=== PATIENT | male | born 1945 | race Caucasian/White ===

== ENCOUNTER → 2024-12-05 14:08 | Outpatient (REF) | payer OTHER, SELFPAY | LOC: DHSLP 14:08 | PROVIDERS: ATTENDING PHYSICIAN Internal Medicine Critical Care Medicine; FAMILY PHYSICIAN Family Medicine | DX: G47.33 Obstructive sleep apnea (adult) (pediatric) (principal) | CPT/HCPCS: 95800 ==

== ENCOUNTER → 2025-02-17 07:31 | Outpatient (REF) | payer OTHER, SELFPAY | LOC: MRI 07:31 | PROVIDERS: ATTENDING PHYSICIAN Orthopaedic Surgery; FAMILY PHYSICIAN Family Medicine | DX: M25.551 Pain in right hip (principal); Z96.641 Presence of right artificial hip joint | CPT/HCPCS: 73721 ==

== ENCOUNTER 2025-06-28 19:39 | Inpatient (IN) | payer OTHER, SELFPAY ==
[2025-06-28 12:02] VITALS: BP 92/66
[2025-06-28 12:26] LABS: Hematocrit 41.6 % (39.0-52.0); Hemoglobin 14.5 g/dL (13.0-18.0); Mean Corp Hgb Conc. 34.9 g/dL (33.0-37.0); Mean Corpuscular Volume 88.1 fL (80.0-94.0); Nucleated Red Blood Cells % 0 % (-); Platelet Count 158 10^3/uL (130-400); Red Cell Dist. Width 13.2 % (11.5-14.5)
[2025-06-28 12:35] LABS: INR 1.73; PT 20.5 Sec (11.4-14.6)
[2025-06-28 12:36] LABS: APTT 40.3 Sec (23.4-35.0)
[2025-06-28 12:44] VITALS: BMI 38.9
[2025-06-28 12:45] VITALS: BP 126/58
[2025-06-28 13:00] LABS: Blood Urea Nitrogen 16 mg/dl (9-20); Calcium 8.8 mg/dl (8.4-10.2); Carbon Dioxide 26 mmol/L (22-30); Chloride 109 mmol/L (98-107); Estimated Creatinine Clearance 62 ml/min; Glucose 112 mg/dl (70-99); Sodium 139 mmol/L (135-145); eGFR 56.23
[2025-06-28] MEDS: DILAUDID 0.5 MG IV (14:09)
[2025-06-28 15:00] VITALS: BP 135/69
[2025-06-28 16:44] LABS: Glucose - Point of Care 82 mg/dl (70-99)
--- NOTE | 2025-06-28 16:45 | ED.GENMED ---
History of Present Illness
General
Chief Complaint: Rectal Bleeding
Source: patient
Exam Limitations: none
Time Seen by Provider: 06/28/25 13:33
Nursing documentation reviewed up to this point in time: agreed with
History of Present Illness
History of Present Illness:
Patient is a 79-year-old male with history atrial fibrillation on Xarelto, CHF, CAD, hypertension, hyperlipidemia, insulin-dependent diabetes who presents to the emergency department with rectal bleeding. Patient states that over the past week he
was struggling with some constipation however on Tuesday he was able to have a bowel movement and noticed bright red blood in the toilet bowl. Yesterday he, he states that he did not have a bowel movement. He was able to have another bowel
movement today and again noticed a significant amount of bright red blood in the toilet bowl, he believes more today than on Tuesday.
He also reports pain in the left side of his abdomen radiating around into his left back.
Patient denies any history of GI bleeding. He denies any associated fever, chills, dysuria, hematuria. He denies any chest pain, shortness of breath. He denies any hemoptysis or hematemesis.
Patient is anticoagulated on Xarelto.
Past History
Past History
ED Past Medical History: Arrthythmia, CHF and NIDDM
ED Past Surgical History: Cardiac (Ablation)
Social History
Tobacco: Non-smoker
Alcohol: None
Drug: None
Personal:
Living: with family
Employment: Retired
Family History
Family History: Other (Noncontributory)
Review of Systems
Review of Systems
Allergies reviewed?: Yes
All Other Systems: ROS reviewed and negative except as documented in HPI and ROS
Phy Exam
Physical Exam
Physical Exam:
Vitals: Patient's vital signs are stable by my assessment. Afebrile.
General: Patient is well appearing, no acute distress
Skin: Warm and dry, no rashes or lesions
Head: Normocephalic, atraumatic
Eyes: Sclera nonicteric. EOMs intact. No nystagmus.
Throat: Protecting airway
Neck: Normal ROM, no cervical spine tenderness, no meningismus
Cardiac: Bradycardic, normal rhythm, no murmurs.
Pulm: Normal respiratory effort, no wheezes, rales, rhonchi heard on exam
Abdomen: Reproducible tenderness in left mid abdomen. No rebound tenderness or guarding. No CVA tenderness. No rash or ecchymoses
Rectal: No visualized external hemorrhoids. Soft light brown stool in vault. Guaiac positive
Extremities: No evidence of cyanosis or edema
Neuro: AAOx3. Grossly intact.
Psychiatric: Normal affect.
Course
Orders/Labs/Results
Orders:
Orders
06/28/25 12:05
Electrocardiogram (*1) Urgent
Reason for Study: Vertigo / Dizzy
06/28/25 12:15
Type And Crossmatch [Type+Screen] Urgent
Basic Metabolic Panel Urgent
Complete Blood Count/With Diff Urgent
PTT Urgent
Prothrombin Time Urgent
06/28/25 13:47
CT Abd/pelvis W Iv Cont Urgent
Comment:
Reason For Exam: Lower abdominal pain
HYDROmorphone [Dilaudid] 0.5 mg IV NOW STA
06/28/25 Dinner
Clear Liquid
At Your Request: Full Participation
06/28/25 16:39
Urinalysis Reflex To Culture Urgent
Date Specimen was Collected: 06/28/25
Time Specimen was Collected: 16:33
Urine Microscopic Reflex Cult Urgent
Urine Culture Urgent
CHAN Source: U
Specimen Description:
Date Specimen was Collected: 06/28/25
Time Specimen was Collected: 16:33
06/28/25 19:17
Admit/Transfer Patient As Directed
Co-Sign Provider:
Level of Care: Inpatient admission
Assign to:: Telemetry
Physician / Group: adry robbins
Diagnosis: rectal bleeding likely hemorrhoidal vs diverticular
Reason for Telemetry: Arrhythmia
Date to Stop Telemetry: 07/01/25
Time to Stop Telemetry: 11:00
Reason for Hospitalization: rectal bleeding likely hemorrhoidal vs diverticular
Expected length of stay greater than two midnights?: Yes
ELOS- Estimated Length of Stay in days: 3
I certify the patient meets the requirements for IP care: Yes
06/28/25 19:19
PRN Pain Medication Management As Directed
May give lesser potent ordered pain med per pt: Yes
preference::
Protocol:: Medication orders for pain may be administered in a
manner that supports deferring to patient preference
when the pt is:
- Requesting an ordered lesser potent pain medication.
Least to most potent pain medications are defined
as: acetaminophen < NSAID < tramadol < opioids
(morphine, oxycodone, hydromorphone).
- Requesting a lesser dose of the same medication IF
ORDERED.
- Requesting a less intrusive route of administration
if both routes are prescribed by the provider (PO <
IV).
06/28/25 19:20
Code Status As Directed
Resuscitation Status: Full Code
06/28/25 20:38
Activity As Directed
Activity Level: As Tolerated
Intake/ Output As Directed
Frequency: Per unit guidelines
Pneumatic Compression Sleeves As Directed
Type: Knee high
Vital Signs As Directed
Frequency: Per unit guidelines
Weight As Directed
Frequency: Daily
Cpap [RESP] Routine
Patient to use own unit?: Yes
Set Pressure (cm H2O): 13
DX Deep Vein Thrombosis Video Routine
06/29/25 06:00
Complete Blood Count/With Diff IN AM
Comprehensive Metabolic Panel IN AM
06/30/25 06:00
Complete Blood Count/With Diff IN AM
Comprehensive Metabolic Panel IN AM
07/01/25 11:00
DC Protocol for Telemetry ONCE
Abnormal Lab Results
06/28/25 06/28/25
12:15 16:39
MPV 11.7 H fL
(7.4-10.4)
PT 20.5 H Sec
(11.4-14.6)
APTT 40.3 H Sec
(23.4-35.0)
Chloride 109 H mmol/L
(98-107)
Glucose 112 H mg/dl
(70-99)
Leukocyte Esterase Rfl 1+ A
(Negative)
Urine Bacteria (Reflex) Few A
(Negative)
06/28/25 12:15
06/28/25 12:15
Vital Signs
Initial and Last Documented VS:
Initial Vital Signs
Temp Pulse Resp BP Pulse Ox
97.6 F 48 18 92/66 95
06/28/25 12:02 06/28/25 12:02 06/28/25 12:02 06/28/25 12:02 06/28/25 12:02
Last Documented Vital Signs
Temp Pulse Resp BP Pulse Ox
97.5 F 48 19 168/78 97
06/28/25 23:50 06/28/25 23:50 06/28/25 23:50 06/28/25 23:50 06/28/25 23:50
MDM/Problems Addressed
Differential Diagnosis Includes:
Not limited to: diverticular bleeding, internal hemorrhoids, anal fissure, stercoral colitis, diverticulitis, etc
MDM/Problems Addressed:
79 y.o male anticoagulated on Xarelto presenting following multiple episodes of rectal bleeding over the past few days now with left sided abdominal pain. No chest pain, SOB, vomiting, hematemesis, hematuria, diarrhea. Rectal bleeding has only
occurred with bowel movements. No syncopal episodes. Initial BP noted however pt normotensive by my evaluation and hemodynamically stable. Afebrile. Physical exam as above. Patient well appearing, in no distress. Abdomen soft with reproducible
tenderness in LLQ. Rectal exam with soft brown, heme positive stool. Cardio/pulmonary assessment unremarkable. Differential broad. Possible bleeding secondary to internal hemorrhoids from straining given recent constipation. Other possibilities
include diverticular bleeding, colitis, etc. Concern given patient is on xarelto - will likely require admission. ED plan: labs, UA. Given associated abdominal pain, will check CT scan abdomen. Will treat pain and reassess.
Update: labs without clinically significant abnormalities. Hgb stable. UA does not indicate infection. CT scan without acute findings of known diverticular disease noted however nothing suspicious for diverticulitis. Patient has remained
hemodynamically stable in ED without any episdoes of GI bleeding in deparment. However - given patient is anticoagulated with evidence of somewhat significant bleeding - will admit to hospitalist for further observation. Patient accepted to
hospitalist service in stable condition.
Chronic conditions affecting care:
Atrial fibrillation on xarelto
Acute Exacerbation and/or Progression of Chronic Illness:
Lower GI bleeding on xarelto
*Radiology
Radiology exam reviewed: radiology read reviewed
*Pulse Oximetry
SaO2: 94
Oxygen Mode of Delivery: Room air
Patient hypoxic: no
*EKG
Interpreted by ED Provider?: Yes
EKG Intrepretation Date: 06/28/25
Interpretation: abnormal
Comparison EKG: changes noted
Heart Rate: 49
Rate: bradycardiac
Rhythm: sinus and PAC's
[place]: normal axis
Interval: normal QT interval
QRS Pattern: normal QRS
Ischemia: non-specific ST changes
*Resin Coater Interpretation
Rate: bradycardiac
Interpretation: abnormal
Heart Rate: 54
Rhythm: sinus
*Critical Care Note
Total Time (30-74mins, 75-104mins- exclusive of procedures): Not Applicable
Patient Management
Discussion with other providers: Hospitalist
Escalation/DeEscalation of care consider admission/obs:
Admit for observation given lower GI bleeding on xarelto
ED Attending Note
-
Portions of this chart may have been created with voice recognition software.� Occasional wrong word or��sound alike� substitutions may have occurred due to the inherent limitations of voice recognition software.
Discharge Plan
Departure
Patient Disposition: Admit
Date of Disposition: 06/28/25
Time of Disposition: 17:37
Presentation/result/management discussed w/ accepting MD/DO: Hospitalist
Discharge Problem:
GI bleeding
Interventions
Interventions:
*Risk Screen - Suicide Last Done: 06/28/25 12:02
*General Assessment Last Done: 06/28/25 12:02
*Neglect/Abuse Screening Last Done: 06/28/25 20:45
*ED- Fall Risk Assessment Last Done: 06/28/25 20:45
*ED COVID-19 Vaccine History Last Done: 06/28/25 21:03
*Nursing Disposition Last Done: 06/28/25 20:45
XC-Kvzwsv-Txijxbefrt Assessment Last Done: 06/28/25 12:45
ED- Cardiac Assessment Last Done: 06/28/25 12:45
ED- Pulmonary Assessment Last Done: 06/28/25 12:45
Discharge Date and Time
Discharge Date/Time: 06/28/25 21:08
[2025-06-28 16:51] LABS: Urine Character Clear (Clear)
[2025-06-28 16:58] LABS: Urine Red Blood Cell 0-2 /HPF (0-2)
--- NOTE | 2025-06-28 18:05 | W.PN.UPDATE ---
Update Note
Progress Note Update
This note serves as an addendum to the H&P by geriatric nursing assistant Bo Medina
HPI�
79M HX on Xarelto, CHF, CAD, hypertension, hyperlipidemia, IDDM, seen at ER:
- pw rectal bleeding
- over the past week, he was somewhat constipated
on Tuesday he was able to have a bowel movement and noticed bright red blood in the toilet bowl.
- no BM yesterday
- had another bowel movement today and again noticed a significant amount of bright red blood in the toilet bowl, he believes more today than on Tuesday.
- reports pain in the left side of his abdomen radiating around into his left back.
ROS
- denies any history of GI bleeding.
- denies any associated fever, chills, dysuria, hematuria. He denies any chest pain, shortness of breath.
- denies any hemoptysis or hematemesis.
Reviewed VS:
Temp Pulse Resp BP Pulse Ox
97.6 F 41 17 135/69 94
06/28/25 12:02 06/28/25 15:30 06/28/25 15:30 06/28/25 15:00 06/28/25 16:45
PE
Gen: NAD
HEENT: anicteric
Neck: supple
Lungs: CTA
Cor: RRR S1 S2
Abdomen:�soft , NT, NG
SÁNCHEZ by ER AP: No visualized external hemorrhoids. Soft light brown stool in vault. Guaiac positive
AUDIO DIRECTOR: AAO3
MS: no edema
Psych: normal mood and affect
Relevant Data�
Hgb 14.5 9 ( 15.2 in 2017)
INR 1.73
Cr 1.3
eGFR 56
06/28/25 06/28/25
12:15 16:39
MPV 11.7 H
PT 20.5 H
APTT 40.3 H
Chloride 109 H
Glucose 112 H
Leukocyte Esterase Rfl 1+ A
Urine Bacteria (Reflex) Few A
EKG
SINUS BRADYCARDIA WITH PREMATURE ATRIAL COMPLEXES
ANTERIOR INFARCT , AGE UNDETERMINED
ABNORMAL ECG
WHEN COMPARED WITH ECG OF 07-Sep-2017 10:40,
PREMATURE ATRIAL COMPLEXES ARE NOW PRESENT
Confirmed by MD HOLDEN, ANAND Chau ([id number]) on 06/28/2025 1:17:27 PM
NO PRIOR hospitalist admission:
ASSESSMENT & PLAN
Pending Rx reconciliation
Acute painless BRBP rectal bleed associated with constipation and BM - DDX: likely hemorrhoidal bleed , diverticular bleed
-Hemodynamically stable
-Labs, UA, CT fine. Hgb 14.5
-SÁNCHEZ w/ light brown stool, guaiac positive
- Trend Hgb
- Fecal softener
- Clear and IVF
- Anusol
- Hold Xarelto for now
- c/w Carvedilol - hold for SBP < 110, HR < 55
- currently on Frusemide - hold for now and f/u BP
- Hold Losartan
- GI consult
In SB, NSR
HX Prx AF
- c/w Carvedilol - hold for SBP < 110, HR < 55
HX CHF NOS
Essential HTN
- last TTE was 2016
- currently on Frusemide - hold for now and f/u BP
- Hold Losartan
- currently on Frusemide - hold for now and f/u BP
- Hold Losartan
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
- trend Cr
IDDM
- on clear
- Decrease Insulin glargine to 24u HS in place of G[employer]ERATOR 48u HS
- add ISS low
DVT Px: SCD
Full code
IP TLM
--- NOTE | 2025-06-28 18:16 | HPS.HSE ---
Family Physician
-
Family Physician: Lakeshia Burch
Chief Complaint
-
Rectal bleeding constipation
History of Present Illness
79-year-old male who states he has been constipated with last bowel movement normal on Tuesday. He reports on Tuesday he took MiraLAX and was straining to have a bowel movement he had a formed brown several hard rock like appearance of stool with
the toilet bowl being bright red in color. He states he had no bowel movement yesterday however today he had the same experience of straining with brown hard stool and bright red blood in the toilet. He also has some left sided lower abdominal
tenderness on palpation. He denies fever, chills, chest pain, palpitations, cough, nausea, vomiting, diarrhea, rash.
Patient has past medical history of Paroxysmal A-fib status post ablation, Cardiomyopathy EF 45% as of this year, Chronic CHF, CAD/MO, DM 2, HTN, HLD
GERD, Diverticulitis, Colonic polyps and diverticula on [place] 2022, CKD 2, Sleep apnea/CPAP setting 13, Restless leg syndrome, SAULT [place], Osteoarthritis
Rotator cuff syndrome, Class III obesity.
Medical History
Past Medical History
Past Medical History: Reports Other
Additional Past Medical History:
Paroxysmal A-fib status post ablation
Cardiomyopathy
Chronic CHF
CAD/MO
DM 2
HTN
HLD
GERD
Diverticulitis
Colonic polyps and diverticula on [place] 2022
CKD 2
Sleep apnea/CPAP setting 13
Restless leg syndrome
SAULT [place]
Osteoarthritis
Rotator cuff syndrome
Class III obesity
Past Surgical History: Reports Other
Additional Past Surgical History:
Right hemicolectomy 2000
Lap mabel 2003
Cardiac cath 2002
Cardiac ablation A-fib 2006
Bilateral hip replacement 2012, 2016, revision left hip 2016
Left rotator cuff repair
Left shoulder arthroscopy 2010
Social History
Tobacco: Non-smoker
Alcohol: Occasional (Twice a month)
Personal:
Living: With Family
Employment: Retired
Family History
Family History: Not pertinent
Allergies / Home Medications
Allergies reflects when Allergies were last updated in [employer].
Home Medications with original date entered in [employer]
Allergy/Medication List:
Allergies
Allergy/AdvReac Type Severity Reaction Status Date / Time
amiodarone Allergy Pulmonary Verified 07/27/21 06:38
toxicity
dog dander Allergy RUNNY EYES Verified 07/27/21 06:38
lisinopril Allergy cough Verified 07/27/21 06:38
Home Medications
atorvastatin 40 mg tablet 40 mg PO QPM 12/13/12
famotidine 40 mg tablet 40 mg PO QPM 01/06/15
fluticasone propionate 50 mcg/actuation nasal spray,suspension 2 spray intranasal DAILY 01/06/15
carvedilol 25 mg tablet (Coreg) 12.5 mg PO BID 11/14/15
fenofibrate 54 mg tablet 54 mg PO DAILY 11/14/15
omega-3s 600 ex-brg-hzh-other flcci1p-bdud oil 1,200 mg capsule 1 ea PO BID 01/20/16
losartan 50 mg tablet 100 mg PO DAILY 04/01/17
Folic Acid: 400 mcg PO DAILY 08/17/17
furosemide 40 mg tablet 40 mg PO BID 08/17/17
insulin glargine U-300 conc 300 unit/mL (1.5 mL) subcutaneous pen (Toujeo SoloStar U-300 Insulin) 48 unit SC HS 08/17/17
insulin lispro 200 unit/mL (3 mL) subcutaneous pen (Humalog KwikPen U-200 Insulin) 0 unit SQ .BEFORE MEALS 08/17/17
sotalol 80 mg tablet 80 mg PO BID 08/17/17
acetaminophen 500 mg tablet (Tylenol Extra Strength) 1,000 mg PO Q8H PRN pain 07/23/21
eszopiclone 3 mg tablet (Lunesta) 3 mg PO HS 07/23/21
oxycodone-acetaminophen 10 mg-325 mg tablet 1 ea PO Q12H PRN pain 07/23/21
rivaroxaban 20 mg tablet (Xarelto) 20 mg PO QPM 07/23/21
tamsulosin 0.4 mg capsule 0.4 mg PO DAILY@18 07/23/21
B12 1,000 mcg PO DAILY 06/28/25
Tylenol 500 mg PO DAILY PRN mild pain 06/28/25
melatonin 10 mg PO HS PRN insomnia 06/28/25
oxycodone-acetaminophen 10 mg-325 mg tablet 10 tab PO Q4H PRN mod pain 06/28/25
potassium chloride 20 mEq tablet,extended release(part/cryst) (Klor-Con M) 20 meq PO HS 06/28/25
Review of Systems
-
History Source: Patient
A 12 point ROS was completed and negative except as noted: Yes
Constitutional: Denies Fever or Fatigue
EENT: Denies Sore Throat or Runny Nose
Respiratory: Denies Cough or Trouble Breathing
Cardiac: Denies Chest Pain, Diaphoresis, Palpitations or Syncope
Abdomen/GI: Reports Abdominal Pain (Left lower quadrant) and Constipated (Several days hard brown stool then blood in toilet); Denies Nausea, Vomiting or Diarrhea
: Denies Dysuria, Frequency, Flank Pain, Incontinence or Difficulty Voiding
Musculoskeletal: Denies Joint Pain or Edema
Skin: Denies Itching or Rash
Neurological: Denies Dizzy, Headache or Weakness
Endocrine: Reports No Symptoms
Hematologic/Lymphatic: Reports No Symptoms
Psych: Reports Calm
Physical Exam
Vital Signs
Vital Signs
Temp Pulse Resp BP Pulse Ox
97.6 F 41 17 135/69 94
06/28/25 12:02 06/28/25 15:30 06/28/25 15:30 06/28/25 15:00 06/28/25 16:45
Physical Exam
General: Comfortable, Conversant and Morbidly Obese
HEENT: NormoCephalic, Anicteric, Moist mucous membranes, Tracheotomy, PERRLA, [place] Conjunctivae and No Ptosis
Respiratory: Clear; No Wheezes, Rales or Rhonchi
Cardiac: S1/S2 and Regular Rhythm; No Murmur, Rub, Gallop or Peripheral Edema
Breast: Deferred by me
GI: Soft, Non Tender, Non Distended, Normal Bowel Sounds and No Hepatosplenomegaly
Genito-urinary: Deferred by me
Musculoskeletal: No Clubbing, No Cyanosis and No Edema
Skin: Warm and Dry; No Rash
Neuro: AO x 3, No Motor Deficits, Nonfocal/grossly intact, Cranial Nerves Intact and No Sensory Deficits; No DTR's Intact & Symmetrical, Slurred Speech, Facial Droop or Tremors
Psych: Calm
Laboratory Results
-
06/28/25 12:15
06/28/25 12:15
Laboratory Results
PT 20.5 Sec (11.4-14.6) H 06/28/25 12:15
INR 1.73 06/28/25 12:15
APTT 40.3 Sec (23.4-35.0) H 06/28/25 12:15
Total Bilirubin Cancelled 06/28/25 12:15
AST Cancelled 06/28/25 12:15
ALT Cancelled 06/28/25 12:15
Alkaline Phosphatase Cancelled 06/28/25 12:15
Impression/Plan
-
Impression/plan:
Admit to telemetry
#Suspected hemorrhoidal versus diverticular bleed secondary to constipation on Xarelto
#History of Polypectomy benign 2022/several Diverticula sigmoid colon
#History of Right hemicolectomy 2000 secondary to large polyp noncancerous
#History diverticulitis
- 2 episodes of bloody bowel movement Tuesday and today
- Brown heme positive stool by ER provider
- Hold Xarelto last dose was yesterday 06/27/2025 evening
- Consult GI
-Hemoglobin stable 14.5 will monitor
- Type and screen obtained
- Clear liquid diet
CT abdomen pelvis with IV contrast:
Mild diffuse bladder wall thickening. This can be seen with cystitis or bladder outlet obstruction. It may also be due to limited distention.
Hepatic fatty infiltration. Stable
Simple left renal cyst. Stable. Too small to characterize hypodense right renal lesion likely a benign cyst. Stable
Diverticulosis. No acute diverticulitis. Stable
Colonoscopy 11/04/2022:
A 5 mm polyp was found in the transverse colon. The polyp was flat. The
polyp was removed with a cold snare. Resection was complete, but the
polyp tissue was not retrieved.
A few small-mouthed diverticula were found in the sigmoid colon.
No other significant abnormalities were identified in a careful
examination of the remainder of the colon.
No additional abnormalities were found on retroflexion.
#A-fib paroxysmal
#Cardiac ablation A-fib 2006
-Hold Xarelto due to rectal bleeding
-Continue sotalol 80 mg twice daily with hold parameters
EKG: Sinus bradycardia with PACs heart rate 49 bpm, QTc 455 MS
#Cardiomyopathy EF 45-50% in 2020
#Chronic CHF
I/O, daily weights
Continue furosemide 40 mg twice daily
2D echo 11/26/2020: EF 45-50%, mild LVH, left ventricle mildly dilated with mildly reduced low normal systolic function mild to moderate MR
#CAD/MO
- Continue fenofibrate, Coreg 12.5 mg twice daily, atorvastatin 40 mg every afternoon
#DM 2
Blood sugar 112
-Hold Toujeo 48 units will give patient insulin sliding scale reports recent A1c 2 weeks ago was 6.5
#HTN
BP 135/69
-Continue losartan 100 mg daily, sotalol 80 mg twice daily Coreg 12.5 mg twice daily with hold parameters
#HLD
Continue atorvastatin 40 mg every afternoon, fenofibrate 54 mg daily
#GERD
- Continue famotidine 40 mg every afternoon
#CKD 2
Creat 1.3, GFR 56.2 appears baseline
#Sleep apnea/CPAP setting 13
#Insomnia
Continue Lunesta 3 mg at bedtime
Hold melatonin 10 mg advised patient should not be taking both
#Class II obesity�BMI 38.9
Affects all aspects of care
Weight loss recommended
Other PMH:
Restless leg syndrome
SAULT [place]
Osteoarthritis
Rotator cuff syndrome
DVT prophylaxis
Hold Xarelto
Full code
[2025-06-28 20:50] VITALS: BP 161/74
[2025-06-28 20:51] VITALS: BMI 38.5
[2025-06-28 21:05] VITALS: BMI 38.5
[2025-06-28 23:50] VITALS: BP 168/78
[2025-06-29 03:26] VITALS: BP 149/77
[2025-06-29 06:00] VITALS: BMI 38.5
[2025-06-29 07:46] LABS: Hematocrit 39.7 % (39.0-52.0); Hemoglobin 14.0 g/dL (13.0-18.0); Mean Corp Hgb Conc. 35.3 g/dL (33.0-37.0); Mean Corpuscular Volume 86.9 fL (80.0-94.0); Nucleated Red Blood Cells % 0 % (-); Platelet Count 141 10^3/uL (130-400); Red Cell Dist. Width 13.0 % (11.5-14.5)
[2025-06-29 08:16] LABS: Glucose - Point of Care 115 mg/dl (70-99)
[2025-06-29 08:35] VITALS: BP 157/57
[2025-06-29] MEDS: COZAAR 100 MG PO (08:45)
[2025-06-29] MEDS: ROXICODONE 5 MG PO (08:52)
--- NOTE | 2025-06-29 08:58 | CON.GI ---
Consultation
-
Date/Time Consultation Performed: 06/29/25
Performing Provider: Valdo Grewal MD
Reason for Consultation: rectal bleeding
Medical History
Chief Complaint / HPI
Chief Complaint: rectal bleeding
History of Present Illness:
The patient is a 79-year-old male with past medical history as noted rectal bleeding. Had 1 episode of bright red blood in the bowl after straining with hard bowel movement on Tuesday, and another small episode on Tuesday. he had no
bowel movements. Overnight he has had no bowel movements or further bleeding. He another episode similar to this a couple of years ago. His last colonoscopy in 2022 showed diverticulosis and small polyp but otherwise was unremarkable. Is been
doing well otherwise medically without any other change in bowel habits, fever or chills. He denies any chest pain or shortness of breath. Rectal exam in the emergency room showed brown stool, no obvious mass. He denies any pain with defecation.
Past Medical History
Past Medical History: Other (Paroxysmal A-fib status post ablation Cardiomyopathy Chronic CHF CAD/IL DM 2 HTN HLD GERD Diverticulitis Colonic polyps and diverticula on [place] 2022 CKD 2 Sleep apnea/CPAP setting 13 Restless leg syndrome [place]
Osteoarthritis Rotator cuff syndrome Class III obesity)
Past Surgical History: Other (Right hemicolectomy 2000 Lap mabel 2004 Cardiac cath 2003 Cardiac ablation A-fib 2006 Bilateral hip replacement 2012, 2016, revision left hip 2017 Left rotator cuff repair Left shoulder arthroscopy 2010)
Social History
Tobacco: Non-Smoker
Alcohol: Occasional
Family History
Family History: Reviewed & Not Pertinent
Allergies / Home Medications
Allergy/AdvReac Type Severity Reaction Status Date / Time
amiodarone Allergy Pulmonary Verified 07/27/21 06:38
toxicity
dog dander Allergy RUNNY EYES Verified 07/27/21 06:38
lisinopril Allergy cough Verified 07/27/21 06:38
�Medication �Instructions �Recorded
atorvastatin 40 mg tablet 40 mg PO QPM 12/13/12
famotidine 40 mg tablet 40 mg PO QPM 01/06/15
fluticasone propionate 50 2 spray intranasal DAILY 01/06/15
mcg/actuation nasal
spray,suspension
carvedilol 25 mg tablet (Coreg) 12.5 mg PO BID 11/14/15
fenofibrate 54 mg tablet 54 mg PO DAILY 11/14/15
omega-3s 600 kh-rlo-dma-other 1 ea PO BID 01/20/16
pzciv6q-[id number] oil 1,200 mg capsule
losartan 50 mg tablet 100 mg PO DAILY 04/01/17
Folic Acid: 400 mcg PO DAILY 08/17/17
furosemide 40 mg tablet 40 mg PO BID 08/17/17
insulin glargine U-300 conc 300 48 unit SC HS 08/17/17
unit/mL (1.5 mL) subcutaneous pen
(Toujeo SoloStar U-300 Insulin)
insulin lispro 200 unit/mL (3 mL) 0 unit SQ .BEFORE MEALS 08/17/17
subcutaneous pen (Humalog KwikPen
U-200 Insulin)
sotalol 80 mg tablet 80 mg PO BID 08/17/17
acetaminophen 500 mg tablet 1,000 mg PO PRN PRN pain 07/23/21
(Tylenol Extra Strength)
eszopiclone 3 mg tablet (Lunesta) 3 mg PO HS 07/23/21
oxycodone-acetaminophen 10 mg-325 1 ea PO Q12H PRN pain 07/23/21
mg tablet
rivaroxaban 20 mg tablet (Xarelto) 20 mg PO QPM 07/23/21
tamsulosin 0.4 mg capsule 0.4 mg PO DAILY@18 07/23/21
B12 1,000 mcg PO DAILY 06/28/25
Tylenol 500 mg PO DAILY PRN mild pain 06/28/25
melatonin 10 mg PO HS PRN insomnia 06/28/25
oxycodone-acetaminophen 10 mg-325 10 tab PO Q4H PRN mod pain 06/28/25
mg tablet
potassium chloride 20 mEq 20 meq PO HS 06/28/25
tablet,extended
release(part/cryst) (Jorgeor-Arnaud M)
Review of Systems
-
All other systems: A 12 pt ROS was Negative except as stated above in HPI
Vital Signs
Temp Pulse Resp BP Pulse Ox
97.8 F 50 16 157/57 97
06/29/25 08:35 06/29/25 08:44 06/29/25 08:35 06/29/25 08:44 06/29/25 08:35
Physical Exam
Exam
General: NAD
HEENT: MMM, anicteric, no lymphadenopathy
Heart: Regular, no murmurs
Lungs: CTA bilaterally
Abdomen: normal bowel sounds, soft, no tenderness, no rebound or guarding, no masses, bruits or ascites
Extremeties: no edema
Skin: no rashes
Rectal exam in ER without obvious mass, brown stool in the vault.
Results
WBC 6.3 10^3/uL (4.8-10.8) 06/29/25 07:16
Hgb 14.0 g/dL (13.0-18.0) 06/29/25 07:16
Hct 39.7 % (39.0-52.0) 06/29/25 07:16
MCV 86.9 fL (80.0-94.0) 06/29/25 07:16
Plt Count 141 10^3/uL (130-400) 06/29/25 07:16
Absolute Neuts (auto) 3.9 10^3/uL (1.4-6.5) 06/29/25 07:16
PT 20.5 Sec (11.4-14.6) H 06/28/25 12:15
INR 1.73 06/28/25 12:15
APTT 40.3 Sec (23.4-35.0) H 06/28/25 12:15
Sodium 139 mmol/L (135-145) 06/28/25 12:15
Potassium mmol/L (3.5-5.1) 06/28/25 12:15
Chloride 109 mmol/L (98-107) H 06/28/25 12:15
Carbon Dioxide 26 mmol/L (22-30) 06/28/25 12:15
BUN 16 mg/dl (9-20) 06/28/25 12:15
Creatinine 1.3 mg/dL (0.7-1.3) 06/28/25 12:15
Calcium 8.8 mg/dl (8.4-10.2) 06/28/25 12:15
Total Bilirubin Cancelled 06/28/25 12:15
AST Cancelled 06/28/25 12:15
ALT Cancelled 06/28/25 12:15
Alkaline Phosphatase Cancelled 06/28/25 12:15
Diagnostic Image Results:
CT:
IMPRESSION: Mild diffuse bladder wall thickening. This can be seen with cystitis or bladder outlet obstruction. It may also be due to limited distention.
Hepatic fatty infiltration. Stable
Simple left renal cyst. Stable. Too small to characterize hypodense right renal lesion likely a benign cyst. Stable
Diverticulosis. No acute diverticulitis. Stable
Prior GI Procedures:
EGD:
Colonoscopy:
2022:
Impression: - One 5 mm polyp in the transverse colon, removed with
a cold snare. Complete resection. Polyp tissue not
retrieved.
- Minimal diverticulosis in the sigmoid colon.
Assessment / Plan
-
1. Rectal bleeding: Consistent with hemorrhoidal bleeding, less likely fissure with lack of pain, with stable hemoglobin overnight. At this point we discussed supportive care, can DC with Anusol suppositories for 5 days if recurs and sitz bath's.
We discussed increasing fiber and hydration as a baseline. We will hold on further GI workup for now. He is okay to DC from GI standpoint.
We will sign off for now, please call back with any further questions.
-
-
Thank you for consultation and allowing me to participate in the patient's care. Please call the global implementation manager GI physician during the after hours with any questions or concerns.
[2025-06-29 09:16] LABS: ALT (SGPT) 30 U/L (0-50); AST (SGOT) 29 U/L (17-59); Albumin 3.7 g/dl (3.5-5.0); Alkaline Phosphatase 43 U/L (38-126); Blood Urea Nitrogen 13 mg/dl (9-20); Calcium 9.1 mg/dl (8.4-10.2); Carbon Dioxide 29 mmol/L (22-30); Chloride 108 mmol/L (98-107); Estimated Creatinine Clearance 66 ml/min; Glucose 126 mg/dl (70-99); Potassium 4.0 mmol/L (3.5-5.1); Sodium 139 mmol/L (135-145); Total Protein 6.2 g/dl (6.3-8.2); eGFR > 60.00
--- NOTE | 2025-06-29 09:34 | W.PN.HOSP.TC ---
Today's Communication/Plan
-
Cleared by GI for discharge today
Assessment / Plan
Assessment / Plan
HPI: 79-year-old male who states he has been constipated with last bowel movement normal on Tuesday. He reports on Tuesday he took MiraLAX and was straining to have a bowel movement he had a formed brown several hard rock like appearance of stool
with the toilet bowl being bright red in color. He states he had no bowel movement yesterday however today he had the same experience of straining with brown hard stool and bright red blood in the toilet. He also has some left sided lower
abdominal tenderness on palpation. He denies fever, chills, chest pain, palpitations, cough, nausea, vomiting, diarrhea, rash.
#Suspected hemorrhoidal versus diverticular bleed secondary to constipation on Xarelto
#History of Polypectomy benign 2022/several Diverticula sigmoid colon
#History of Right hemicolectomy 2000 secondary to large polyp noncancerous
#History diverticulitis
- 2 episodes of bloody bowel movement Tuesday and today
- Brown heme positive stool by ER provider
- Held Xarelto last dose was 06/27/2025 -GI said okay to resume Xarelto today 06/19/2025
- Appreciate GI input, patient has hemorrhoidal bleeding which has resolved
- GI recommends Anusol suppository, sitz bath's, fiber
- Patient requesting discharge, will discharge him on Anusol suppository, MiraLAX
- Follow-up with PCP in 1 week, and GI as needed
#A-fib paroxysmal
#Cardiac ablation A-fib 2006
- Okay to resume Xarelto as per GI
EKG: Sinus bradycardia with PACs heart rate 49 bpm, QTc 455 MS
- Discussed with patient, recommend permanently discontinuing Coreg due to bradycardia
- Continue sotalol 80 mg twice a day, recommend following up with his usual project management manager in the office due to bradycardia
#Cardiomyopathy EF 45-50% in 2021
#Chronic CHF
Continue furosemide 40 mg twice daily
#CAD/AK
- Continue fenofibrate, Coreg 12.5 mg twice daily, atorvastatin 40 mg every afternoon
#DM 2
Blood sugar 112
- Resume home regimen upon discharge
#HTN
BP 135/69
-Continue losartan 100 mg daily, sotalol 80 mg twice daily Coreg 12.5 mg twice daily with hold parameters
#HLD
Continue atorvastatin 40 mg every afternoon, fenofibrate 54 mg daily
#GERD
- Continue famotidine 40 mg every afternoon
#CKD 2
Creat 1.3, GFR 56.2 appears baseline
#Sleep apnea/CPAP setting 13
#Insomnia
Continue Lunesta 3 mg at bedtime
Hold melatonin 10 mg advised patient should not be taking both
#Class II obesity�BMI 38.9
Affects all aspects of care
Weight loss recommended
Other PMH:
Restless leg syndrome
RINCON
Osteoarthritis
Rotator cuff syndrome
DVT prophylaxis -okay to resume Xarelto as per GI
Full code
Physical Exam
General: Obese, no acute distress
HEENT: Normocephalic, Atraumatic, EOMI, MMM
Respiratory: Clear to Auscultation bilaterally
Cardiac: Normal S1/S2, bradycardic rate
GI: Soft, Nontender, Nondistended, Normal Bowel Sounds
Extremities: No Clubbing, Cyanosis, or Edema
Neuro: Nonfocal/Grossly Intact
Anticipated Discharge: Today
Subjective/Interval History
-
Date of Service: June 29, 2025
Rectal bleeding resolved. He denies abdominal pain. No chest pain, no shortness of breath. No fever, no vomiting.
Objective Data
-
Labs:
Laboratory Results
06/29/25 06/29/25
07:16 08:48
WBC 6.3
Hgb 14.0
Hct 39.7
Plt Count 141
Sodium Cancelled 139
Potassium Cancelled 4.0
Chloride Cancelled 108 H
Carbon Dioxide Cancelled 29
BUN Cancelled 13
Creatinine Cancelled 1.2
Glucose Cancelled 126 H
Calcium Cancelled 9.1
Total Bilirubin Cancelled 2.0 H
AST Cancelled 29
ALT Cancelled 30
Alkaline Phosphatase Cancelled 43
Vital Signs:
Vital Signs
Temp Pulse Resp BP Pulse Ox
97.8 F 50 16 157/57 97
06/29/25 08:35 06/29/25 08:44 06/29/25 08:35 06/29/25 08:44 06/29/25 08:35
I&O
06/28/25 06/29/25 06/30/25
06:59 06:59 06:59
Intake Total 0 / 0
Balance 0 / 0
[2025-06-29 10:19] LABS: Glycohemoglobin (HgbA1c) 6.3 % (4.0-5.6)
--- NOTE | 2025-06-29 10:50 | W.DCSUMMARY ---
Discharge Summary
Discharge Data
Date of Admission: 06/28/25
Date of Discharge: 06/29/25
-
Pending Results: No
Hospital Course
Discharge diagnosis:
Hemorrhoidal bleeding exacerbated by Xarelto use
Paroxysmal atrial fibrillation on Xarelto
Type 2 diabetes
Essential hypertension
Hyperlipidemia
Obesity due to excess calories
Consults: GI
Hospital course:
79-year-old male with a past medical history of CHF, atrial fibrillation on Xarelto, diabetes, and hypertension, was admitted for rectal bleeding. He held his Xarelto 1 day prior to admission. He was seen in conjunction with GI, who suspects he
has hemorrhoidal bleeding. His rectal bleeding stopped, his hemoglobin remained normal. He has been cleared by GI for discharge. GI states he can resume his Xarelto. GI recommends treatment with Anusol suppository, sitz bath's, laxatives. He is
medically stable for discharge. He needs to follow-up with his PCP in 1 week, and GI in the office in 3-4 weeks.
Disposition: Home self-care
Discharge planning: Required 35 minutes
Discharge Plan
-
Patient Disposition: Home (Routine Discharge)
Discharge Diagnosis/Procedures: Hemorrhoidal bleeding
Condition: Good
Diet: Low Fat and Low Cholesterol
Activity: As tolerated
Activity Restrictions/Additional Instructions:
Your heart rate was low in the hospital.
Recommend you discontinue carvedilol/Coreg, and following up with your usual dry press operator regarding your low heart rate.
You were seen by GI, who suspects you have hemorrhoidal bleeding.
GI recommends Anusol suppository for 5 days and sitz bath's. Increase fiber and hydration.
Also start MiraLAX daily.
GI says you can resume your Xarelto. If you start to have more rectal bleeding, can hold for 2-3 days.
Follow-up with your PCP in 1 week, and GI in 3-4 weeks.
Instructions: How to take a sitz bath
Referrals:
Edvin Grewal MD [Active, Gastroenterology] - in three to four weeks
Lakeshia Burch MD [Family Provider, [facility]] - in one week
Prescriptions:
New
hydrocortisone acetate [Anusol-HC] 25 mg suppository
25 mg HI HS Qty: 12 0RF
polyethylene glycol 3350 17 gram/dose powder
17 g PO DAILY Qty: 510 0RF
Continued
atorvastatin 40 MG tablet
40 mg PO QPM
famotidine 40 MG tablet
40 mg PO QPM
fluticasone propionate 1 SPRAY spray,suspension
2 spray intranasal DAILY
Patient Comments:
50mcg
fenofibrate 54 MG tablet
54 mg PO DAILY
tqkwn-[id number]-gxw-epa-fish oil 1 EACH capsule
1 ea PO BID
losartan 50 MG tablet
100 mg PO DAILY
furosemide 40 MG tablet
40 mg PO BID
sotalol 80 MG tablet
80 mg PO BID
insulin glargine U-300 conc [Toujeo SoloStar U-300 Insulin] 300 UNIT/ML insulin pen
48 unit SC HS
Humalog KwikPen Insulin 200 UNIT/ML insulin pen
0 unit SQ .BEFORE MEALS
Patient Comments:
sliding scale
<130=0
131-150=2units
151-200=4units
201-250=6units
251-300=8units
>300=call MD
Folic Acid:
400 mcg PO DAILY
eszopiclone [Lunesta] 3 MG tablet
3 mg PO HS
acetaminophen [Tylenol Extra Strength] 500 MG tablet
1,000 mg PO PRN PRN (Reason: pain)
Xarelto 20 MG tablet
20 mg PO QPM
oxycodone-acetaminophen 1 EACH tablet
1 ea PO Q12H PRN (Reason: pain)
tamsulosin 0.4 MG capsule
0.4 mg PO DAILY@18
B12
1,000 mcg PO DAILY
oxycodone-acetaminophen 10-325 mg tablet
10 tab PO Q4H PRN (Reason: mod pain)
Tylenol
500 mg PO DAILY PRN (Reason: mild pain)
melatonin
10 mg PO HS PRN (Reason: insomnia)
potassium chloride [Klor-Con M20] 20 MEQ tablet,ER particles/crystals
20 meq PO HS
Discontinued
carvedilol [Coreg] 25 MG tablet
12.5 mg PO BID
Discharge Orders:
Discharge Patient (As Directed); Ordered 06/29/25
Ordered By: Devang Vanessa
Discharge Date and Time
Discharge Date/Time: 06/29/25 11:38
Print Language: SINHALA
[2025-06-29 11:28] VITALS: BP 155/74
== END 2025-06-29 11:38 | disposition home or self-care (01) | DRG 378 ==
LOC: 4 EAST ACU 19:39
PROVIDERS: Clinical Nurse Specialist Family Health; Emergency Medicine; Physician Assistant; ADMITTING PHYSICIAN Internal Medicine; ATTENDING PHYSICIAN Family Medicine; CONSULT PHYSICIAN Internal Medicine Gastroenterology; EMERGENCY PHYSICIAN Emergency Medicine; FAMILY PHYSICIAN Family Medicine
DX: K62.5 Hemorrhage of anus and rectum (principal); D68.32 Hemorrhagic disorder due to extrinsic circulating anticoagulants; I13.0 Hypertensive heart and chronic kidney disease with heart failure and stage 1 through stage 4 chronic kidney disease, or unspecified chronic kidney disease; I42.9 Cardiomyopathy, unspecified; K64.9 Unspecified hemorrhoids; I48.0 Paroxysmal atrial fibrillation; Z79.01 Long term (current) use of anticoagulants; I50.9 Heart failure, unspecified; N18.2 Chronic kidney disease, stage 2 (mild); E11.22 Type 2 diabetes mellitus with diabetic chronic kidney disease; E78.5 Hyperlipidemia, unspecified; E66.09 Other obesity due to excess calories; Z68.38 Body mass index [BMI] 38.0-38.9, adult; E66.813 Obesity, class 3; G25.81 Restless legs syndrome; K59.00 Constipation, unspecified; I25.10 Atherosclerotic heart disease of native coronary artery without angina pectoris; K21.9 Gastro-esophageal reflux disease without esophagitis; Z86.0100 Personal history of colon polyps, unspecified; Z90.49 Acquired absence of other specified parts of digestive tract; Z96.643 Presence of artificial hip joint, bilateral; N28.1 Cyst of kidney, acquired; Z79.4 Long term (current) use of insulin; Z88.8 Allergy status to other drugs, medicaments and biological substances; Z79.899 Other long term (current) drug therapy
CPT/HCPCS: 74177; 80048; 80053; 81003; 81015; 82962; 83036; 85025; 85610; 85730; 86850; 86900; 86901; 87086; 93005; 96374; 99285; Q9967

== ENCOUNTER → 2025-09-08 11:28 | Outpatient (REF) | payer OTHER, SELFPAY | LOC: MRI 3T 11:28 | PROVIDERS: ATTENDING PHYSICIAN Pain Medicine Interventional Pain Medicine; FAMILY PHYSICIAN Family Medicine | DX: M54.16 Radiculopathy, lumbar region (principal) | CPT/HCPCS: 72148 ==